=== PATIENT | female | born 1980 | race Caucasian/White ===

== ENCOUNTER → 2016-10-12 | Outpatient (CLI) | payer OTHER | LOC: FIMAGING 08:34 | PROVIDERS: ATTEND Obstetrics & Gynecology | DX: O09.512 Supervision of elderly primigravida, second trimester (principal); Z3A.19 19 weeks gestation of pregnancy ==

== ENCOUNTER 2017-03-01 05:35 | Inpatient (IN) | payer OTHER ==
[2017-03-01] MEDS ORDERED: CITRIC ACID/SODIUM CITRATE 30 ML UDCUP PO ONE (06:18)
[2017-03-01] MEDS ORDERED: LR 500 ML IV ONE (06:18)
[2017-03-01] MEDS ORDERED: ceFAZolin 2 GM/DEXTROSE 100 ML IV ONE (06:18)
[2017-03-01] MEDS ORDERED: OXYTOCIN 10 UNIT/ML VIAL ONE (06:26)
[2017-03-01] MEDS ORDERED: LIDOCAINE 1% 300 MG/30 ML SDV ONE (06:26)
[2017-03-01] MEDS ORDERED: OLIVE OIL 118 ML BTL ONE (06:26)
[2017-03-01] MEDS ORDERED: TERBUTALINE SULFATE 1 MG/ML VIAL ONE (06:26)
[2017-03-01] MEDS ORDERED: AMMONIA AROMATIC 1 EACH AMP IH ONE (06:26)
[2017-03-01] MEDS ORDERED: MISOPROSTOL 200 MCG TAB ONE (06:27)
[2017-03-01] MEDS ORDERED: LR 1,000 ML IV SCH (06:30)
[2017-03-01 06:34] LABS: % IMMATURE GRANULYOCYTES 1.5 % (0.0-1.1); ABSOLUTE IMMATURE GRANULOCYTES 0.18 10^3/uL (0.00-0.10); ADD DIFF? NO; ADD MORPH? NO; ADD SCAN? NO; ATYPICAL LYMPHOCYTE FLAG 20 (0-99); FRAGMENT RBC FLAG 0 (0-99); HEMATOCRIT 36.6 % (38.0-47.0); HEMOGLOBIN 12.9 g/dL (12.6-16.3); LEFT SHIFT FLG 10 (0-99); LIPEMIA HEMOLYSIS FLAG 90 (0-99); MEAN CELL HEMOGLOBIN 30.6 pg (27.9-34.1); MEAN CELL HEMOGLOBIN CONCENTR. 35.2 g/dL (32.4-36.7); MEAN CELL VOLUME 86.7 fL (81.5-99.8); MEAN PLATELET VOLUME 12.2 fL (8.7-11.7); PLATELET CLUMPS FLAG 0 (0-99); PLATELET COUNT 150 10^3/uL (150-400); RED BLOOD CELL COUNT 4.22 10^6/uL (4.18-5.33); RED CELL DISTRIBUTION WIDTH 12.7 % (11.5-15.2)
--- NOTE | 2017-03-01 07:18 | PREANESOB ---
Obstetric Pre-Anesthesia Info - General Info Proposed Procedure: C Section. : 1 Para: 0 WBD: 39 - Info Status: Full Term Monitors: External FHR Baseline (bpm): 140 FHR Pattern: Reassuring - Labor Status Section History: Primary Indications for Current Section: Breech Labor Epidural: No Anesthesia ROS: Prior general anesthesia. Allergies/Adverse Reactions: Allergy/AdvReac Type Severity Reaction Status Date / Time No Known Allergies Allergy Unverified 03/01/17 06:18 Home Medications: Medication Instructions Recorded Fish Oil 2 cap PO DAILY 03/01/17 MAGNESIUM 2 tab PO DAILY 03/01/17 1 tab PO DAILY 03/01/17 Probiotic 1 cap PO DAILY 03/01/17 VITAMIN D 3 tab PO DAILY 03/01/17 Visit Medications: Generic Name Dose Route Start Last Admin Trade Name Freq PRN Reason Stop Dose Admin Lactated Ringer's 1,000 mls @ 125 mls/hr 03/01/17 06:30 Lr IV 08/28/17 06:29 CONT MAKENZIE Discontinued Medications Generic Name Dose Route Start Last Admin Trade Name Freq PRN Reason Stop Dose Admin Ammonia (Aromatic Spirit) Confirm 03/01/17 06:26 Ammonia Aromatic Administered 03/01/17 06:27 Dose 1 each IH .STK-MED ONE Citric Acid/Sodium Citrate 30 ml 03/01/17 06:18 Bicitra PO 03/01/17 06:19 ONCALL ONE Ephedrine Sulfate Confirm 03/01/17 06:26 Ephedrine Sulfate Administered 03/01/17 06:27 Dose 50 mg .ROUTE .STK-MED ONE Cefazolin Sodium/Dextrose 100 mls @ 200 mls/hr 03/01/17 06:18 Ancef 2 Gm (Premix) IV 03/01/17 06:47 ONCALL ONE Protocol Lactated Ringer's 500 mls @ 0 mls/hr 03/01/17 06:18 Lr IV 03/01/17 06:19 ONCE ONE As Directed Lidocaine HCl Confirm 03/01/17 06:26 Lidocaine Hcl 1% Administered 03/01/17 06:27 Dose 300 mg .ROUTE .STK-MED ONE Misoprostol Confirm 03/01/17 06:27 Cytotec Administered 03/01/17 06:28 Dose 800 mcg .ROUTE .STK-MED ONE [place] Oil Confirm 03/01/17 06:26 Sweet Oil Administered 03/01/17 06:27 Dose 118 ml .ROUTE .STK-MED ONE Oxytocin Confirm 03/01/17 06:26 Pitocin Administered 03/01/17 06:27 Dose 40 unit .ROUTE .STK-MED ONE Terbutaline Sulfate Confirm 03/01/17 06:26 Brethine Administered 03/01/17 06:27 Dose 1 mg .ROUTE .STK-MED ONE - Anesthesia History Response to Local Anesthetics: Normal Anesthesia & Operative History: No Prior Problems Family Anesthesia History: Negative - Social History Substance Use/Abuse: Denies - Focused Exam Blood Pressure: 117/86 Heart Rate: 58 Respiratory Rate: 18 Height/Weight (Nursing): Height 167.64 cm Weight 76.204 kg Physical Exam: Within normal limits. ASA Status: II Labs: 03/01/17 06:17 - Plan Anesthetic Plan: SAB Consent Signed and on Chart: Yes Patient/Guardian Understands and Agrees to Plan: Yes
[2017-03-01] MEDS ORDERED: DEXAMETHASONE 4 MG/ML VIAL ONE ×2 (07:34)
[2017-03-01] MEDS ORDERED: ONDANSETRON 4 MG/2 ML VIAL ONE ×2 (07:34)
[2017-03-01] MEDS ORDERED: OXYTOCIN 100 UNITS/10 ML VIAL ONE (07:34)
[2017-03-01] MEDS ORDERED: PHENYLEPHRINE HCL 100 MCG/ML SYR ONE (07:34)
[2017-03-01] MEDS ORDERED: fentaNYL 100 MCG/2 ML INJ ONE (07:34)
[2017-03-01] MEDS ORDERED: morphINE PF 10 MG/10 ML INJ ONE (07:37)
[2017-03-01] MEDS ORDERED: CEFAZOLIN 2 GM/DEXTROSE/100 ML BAG IV ONE (07:51)
[2017-03-01] MEDS ORDERED: ACETAMINOPHEN 325 MG TAB PO PRN (07:54)
[2017-03-01] MEDS ORDERED: PROMETHAZINE HCL 25 MG/ML INJ IVP PRN (07:54)
[2017-03-01] MEDS ORDERED: IBUPROFEN 600 MG TAB PO PRN (07:54)
[2017-03-01] MEDS ORDERED: SIMETHICONE 80 MG TAB CHEW PO PRN (07:54)
--- NOTE | 2017-03-01 07:54 | OBDEL ---
Info Type: Primary GBS+: No Indications for Delivery: Elective (Breech presentation) Operative Report - Delivery Pre-op Diagnoses: 1) IUP at 39+3 weeks. 2) Breech presentation Post-op Diagnoses: norman Nulliparous Prior to Delivery: Yes Presentation at Delivery: Breech Procedure: Scheduled, Low Transverse Surgeon: Hetal Thomas Alarm Service Technician: Deirdre Everett Anesthesiologist: Efe Gonzalez L&D Analgesia/Anesthesia Type: Spinal Complications: None Findings: Baby in sveta breech presentation. IV Fluid (ml): 2,800 EBL: 700 cc Drains: Other (Specify) (marti) Data Martinez Delivery Date: 03/01/17 Delivery Time: 08:21 JUSTIN: 03/05/17 Gestational Age: 39 week(s) and 3 day(s) Sex of : Female Weight (gm): 3396 g Score (1 Min): 8 Score (5 Min): 9 ICD10 Worksheet Patient Problems: Problems Problem Status Onset Breech presentation delivered Acute delivery delivered Acute - ICD10 Problem Qualifiers (1) Breech presentation delivered (2) delivery delivered
[2017-03-01] MEDS ORDERED: OXYTOCIN/RINGERS LACTATE 1,000 ML IV SCH (08:00)
[2017-03-01] MEDS ORDERED: ONDANSETRON 4 MG/2 ML VIAL IVP PRN (09:12)
[2017-03-01] MEDS ORDERED: PHENYLEPHRINE HCL 100 MCG/ML SYR IVP PRN (09:12)
[2017-03-01] MEDS ORDERED: NALOXONE HCL 0.4 MG/ML INJ IVP PRN (09:12)
--- NOTE | 2017-03-01 09:12 | POSTANESTH ---
Post Anesthetic Evaluation Cardiovascular Status: Normal, Stable Respiratory Status: Normal, Stable, Similar to Pre-op Cond. Level of Consciousness/Mental Status: Can Participate in Eval, Alert and Oriented Pain Control: Adequate, Prn Tx Ordered Nausea/Vomiting Control: Adequate, Prn Tx Ordered Complications Possibly Related to Anesthesia: None Noted
[2017-03-01] MEDS: KETOROLAC 30 MG/1 ML SDV IVP PRN ×2 (12:11→18:16)
[2017-03-01 19:49] LABS: % IMMATURE GRANULYOCYTES 0.9 % (0.0-1.1); ABSOLUTE IMMATURE GRANULOCYTES 0.18 10^3/uL (0.00-0.10); ADD DIFF? NO; ADD MORPH? NO; ADD SCAN? NO; ATYPICAL LYMPHOCYTE FLAG 0 (0-99); FRAGMENT RBC FLAG 0 (0-99); HEMATOCRIT 35.7 % (38.0-47.0); HEMOGLOBIN 12.8 g/dL (12.6-16.3); LEFT SHIFT FLG 10 (0-99); LIPEMIA HEMOLYSIS FLAG 90 (0-99); MEAN CELL HEMOGLOBIN 30.5 pg (27.9-34.1); MEAN CELL HEMOGLOBIN CONCENTR. 35.9 g/dL (32.4-36.7); MEAN CELL VOLUME 85.2 fL (81.5-99.8); MEAN PLATELET VOLUME 11.6 fL (8.7-11.7); PLATELET CLUMPS FLAG 0 (0-99); PLATELET COUNT 154 10^3/uL (150-400); RED BLOOD CELL COUNT 4.19 10^6/uL (4.18-5.33); RED CELL DISTRIBUTION WIDTH 12.3 % (11.5-15.2)
[2017-03-01 20:12] LABS: ALANINE AMINOTRANSFERASE 26 IU/L (9-52); ALBUMIN 2.6 g/dL (3.5-5.0); ALKALINE PHOSPHATASE 140 IU/L (38-126); ANION GAP 6 mEq/L (8-16); ASPARTATE AMINOTRANSFERASE 32 IU/L (14-46); BILIRUBIN,TOTAL 0.6 mg/dL (0.1-1.4); CALCIUM 8.3 mg/dL (8.5-10.4); CARBON DIOXIDE 17 mEq/l (22-31); CHLORIDE 104 mEq/L (97-110); GLOMERULAR FILTRATION RATE > 60; GLUCOSE 96 mg/dL (70-100); POTASSIUM 5.9 mEq/L (3.5-5.2); SODIUM 127 mEq/L (134-144); TOTAL PROTEIN 4.6 g/dL (6.3-8.2)
--- NOTE | 2017-03-01 21:23 | SOAPPROG ---
SOAP Progress Note Assessment/Plan: Assessment: POD#1 s/p uncomplicated primary C/S Notified by RN of borderline low UOP: 25-30 ml/hr. s/p 5 liters IVF + 500 ml bolus Per RN pt is ambulating, tolerating regular diet, minimal pain Labs show appropriate Hgb, slightly elevated creatinine, elevated K to 5.9 Plan: Expect borderline renal dysfunction from toradol causing hyperkalemia. No e/o bleeding. Appropriate resuscitation. Pt is tolerating po Hold any further toradol Repeat BMP at midnight--will treat potassium if remains elevated 03/01/17 21:20 Objective: Vital Signs Temp Pulse Resp BP Pulse Ox 36.5 C 60 16 107/66 95 03/01/17 20:00 03/01/17 20:00 03/01/17 20:00 03/01/17 20:00 03/01/17 20:00 Laboratory Results 03/01/17 18:40 03/01/17 18:40 02/28/17 03/01/17 03/02/17 05:59 05:59 05:59 Intake Total 4000 Output Total 950 Balance 3050 ICD10 Worksheet Patient Problems: Problems Problem Status Onset Breech presentation delivered Acute delivery delivered Acute
[2017-03-02 02:22] LABS: ANION GAP 5 mEq/L (8-16); CALCIUM 8.2 mg/dL (8.5-10.4); CARBON DIOXIDE 21 mEq/l (22-31); CHLORIDE 104 mEq/L (97-110); CREATININE 1.2 mg/dL (0.6-1.0); GLOMERULAR FILTRATION RATE 51; GLUCOSE 78 mg/dL (70-100); POTASSIUM 6.1 mEq/L (3.5-5.2); SODIUM 130 mEq/L (134-144)
--- NOTE | 2017-03-02 02:57 | SOAPPROG ---
SOAP Progress Note Assessment/Plan: Assessment: POD#2 s/p uncomplicated primary C/S UOP normalized Repeat BMP demonstrates ongoing hyperkalemia and also elevated Cr Plan: Hold NSAIDS Hospitalist consult for recommendations for treatment of hyperkalemia STAT EKG ordered Plan repeat CBC at 0600, no concern at this time for intraabdominal bleeding Objective: Vital Signs Temp Pulse Resp BP Pulse Ox 36.6 C 61 18 105/69 94 03/02/17 00:15 03/02/17 00:15 03/02/17 00:15 03/02/17 00:15 03/02/17 00:15 Laboratory Results 03/01/17 18:40 03/02/17 00:30 02/28/17 03/01/17 03/02/17 05:59 05:59 05:59 Intake Total 4000 Output Total 1260 Balance 2740 ICD10 Worksheet Patient Problems: Problems Problem Status Onset Breech presentation delivered Acute delivery delivered Acute
--- NOTE | 2017-03-02 03:08 | CPEKG ---
Heart Rate: 61 RR Interval: 984 P-R Interval: 160 QRSD Interval: 70 QT Interval: 372 QTC Interval: 375 P [place]: 57 QRS [place]: 38 T Wave [place]: 23 EKG Severity - BORDERLINE ECG - EKG Impression: SINUS RHYTHM EKG Impression: LOW VOLTAGE THROUGHOUT EKG Impression: Probable left atrial abnormality Electronically Signed By: Neymar Ybarra 02-Mar-2017 10:45:01
[2017-03-02] MEDS: HYDROCODONE/APAP 5/325 TAB PO PRN ×5 (03:48→21:35)
[2017-03-02 06:25] LABS: % IMMATURE GRANULYOCYTES 0.9 % (0.0-1.1); ABSOLUTE IMMATURE GRANULOCYTES 0.14 10^3/uL (0.00-0.10); ADD DIFF? NO; ADD MORPH? NO; ADD SCAN? NO; ATYPICAL LYMPHOCYTE FLAG 10 (0-99); FRAGMENT RBC FLAG 10 (0-99); HEMATOCRIT 35.4 % (38.0-47.0); HEMOGLOBIN 12.3 g/dL (12.6-16.3); LEFT SHIFT FLG 10 (0-99); LIPEMIA HEMOLYSIS FLAG 90 (0-99); MEAN CELL HEMOGLOBIN 30.1 pg (27.9-34.1); MEAN CELL HEMOGLOBIN CONCENTR. 34.7 g/dL (32.4-36.7); MEAN CELL VOLUME 86.8 fL (81.5-99.8); MEAN PLATELET VOLUME 11.9 fL (8.7-11.7); PLATELET CLUMPS FLAG 10 (0-99); PLATELET COUNT 151 10^3/uL (150-400); RED BLOOD CELL COUNT 4.08 10^6/uL (4.18-5.33); RED CELL DISTRIBUTION WIDTH 12.5 % (11.5-15.2)
--- NOTE | 2017-03-02 08:50 | OBPP ---
Progress Note Assessment/Plan: Assessment: 36 y.o. female s/p primary C/S for breech. Recovering well with good pain control. Overnight decreased urine output with elevated creatinine. This morning ambulating and voiding plenty of urine. Repeat labs still pending. Plan: Routine / post-op orders. D/C marti, IV BC, abdominal bandage, plexi- pulse stockings. Encourage ambulation. F/U with lab work. 03/02/17 08:46 Subjective: Reports feeling well with good pain control and minimal vaginal bleeding. well. Ambulating well without vertigo. Eating and drinking well without n/v. Incision CDI. Healing well. Appropriate mood with good pain control. Objective: 03/02/17 06:15 Patient ABO/Rh B POSITIVE 03/01/17 06:17 Total Bilirubin 0.6 mg/dL (0.1-1.4) 03/01/17 18:40 AST 32 IU/L (14-46) 03/01/17 18:40 ALT 26 IU/L (9-52) 03/01/17 18:40 Temp Pulse Resp BP Pulse Ox 36.4 C 65 17 102/54 L 94 03/02/17 08:00 03/02/17 08:00 03/02/17 08:00 03/02/17 08:00 03/02/17 08:00 Uterine Position/Fundal Height: Umbilicus -1 Uterine Tone: Firm Physical Exam - Physical Exam General Appearance: WD/WN, alert, no apparent distress EENT: normal ENT inspection Neck: non-tender, supple, normal inspection Respiratory: lungs clear, normal breath sounds Cardiac/Chest: regular rate, rhythm Abdomen: normal bowel sounds, non-tender, soft Extremities: non-tender, normal inspection Back: Normal inspection Skin: normal color, warm/dry Neuro/Psych: alert, normal mood/affect, oriented x 3
[2017-03-02] MEDS: DOCUSATE SODIUM 100 MG CAP PO PRN ×2 (09:00→21:35)
--- NOTE | 2017-03-02 09:39 | HOSPPROG ---
Hospitalist Progress Note Assessment/Plan: #Hyperkalemia: in setting of NAOMI. No peaked TWs on EKG. Repeat BMP. #NAOMI: improved with IVFs. Avoid NSAIDs We will sign off. Please call if can help. Subjective: no acute events Objective: Vital Signs Temp Pulse Resp BP Pulse Ox 36.4 C 65 17 102/54 L 94 03/02/17 08:00 03/02/17 08:00 03/02/17 08:00 03/02/17 08:00 03/02/17 08:00 Laboratory Results 03/02/17 06:15 03/01/17 03/02/17 03/03/17 05:59 05:59 05:59 Intake Total 5700 Output Total 2435 300 Balance 3265 -300 - Physical Exam Constitutional: no apparent distress Eyes: PERRL Ears, Nose, Mouth, Throat: moist mucous membranes Cardiovascular: regular rate and rhythym Respiratory: no respiratory distress Gastrointestinal: normoactive bowel sounds, soft, non-tender abdomen Neurologic: AAOx3, CN II-XII Intact Psychiatric: interacting appropriately ICD10 Worksheet Patient Problems: Problems Problem Status Onset Breech presentation delivered Acute delivery delivered Acute
[2017-03-02 10:07] LABS: ANION GAP 4 mEq/L (8-16); CALCIUM 8.6 mg/dL (8.5-10.4); CARBON DIOXIDE 21 mEq/l (22-31); CHLORIDE 107 mEq/L (97-110); CREATININE 1.1 mg/dL (0.6-1.0); GLOMERULAR FILTRATION RATE 56; GLUCOSE 91 mg/dL (70-100); POTASSIUM 4.3 mEq/L (3.5-5.2); SODIUM 132 mEq/L (134-144)
[2017-03-02] MEDS: IBUPROFEN 600 MG TAB PO SCH ×2 (11:56→18:52)
--- NOTE | 2017-03-02 13:04 | GCON ---
[f rep st] CONSULTATION HOSPITALIST CONSULTATION DATE OF CONSULTATION: 03/02/2017 REFERRING PHYSICIAN: Deirdre Everett MD REASON FOR CONSULTATION: Hyperkalemia. This is a 36-year-old primiparous female who delivered by due to breech presentation at 39 weeks and 3 days on 03/01/2017. I have been asked to consult on due to hyperkalemia. HISTORY OF PRESENT ILLNESS: The patient has been getting NSAIDs. She is on no other medications th at cause hyperkalemia. She has not been taking potassium. Per report, throughout the day, the yoli ent has had very poor urine output. She subsequently received 4 L of fluids. At the time of my exam, she denies any shortness of breath. She tells me that her legs have been qu ite swollen. A Gomes catheter is in place and her urine production is now improving. PAST MEDICAL HISTORY: Denies. PAST SURGICAL HISTORY: Ankle surgery and recent . MEDICATIONS: At home, none. ALLERGIES: No known drug allergies. SOCIAL HISTORY: Denies any alcohol, tobacco, or illicit drug use. FAMILY HISTORY: Reviewed and noncontributory. REVIEW OF SYSTEMS: A comprehensive 10-point review of systems was done and is negative, except for as mentioned in the HPI. PHYSICAL EXAMINATION: VITAL SIGNS: Blood pressure 105/69, pulse 61, respiratory rate 18, O2 satura tion 94% on room air, temperature afebrile. GENERAL: In no acute distress. HEART: S1 and S2. ABE NGS: Clear. No wheezes, rales, or rhonchi. ABDOMEN: Soft. EXTREMITIES: No clubbing or cyanosis . NEURO: Cranial nerves 2-12 grossly intact. No focal motor or sensory deficits. SKIN: Clear. No rashes. LABORATORY DATA: WBC is 20, hemoglobin 12.8, hematocrit 35.7, platelets 154. Sodium 130, potassium 6.1, chloride 104, BUN 17, creatinine 1.2, glucose 78. IMAGING: EKG, which I ordered emergently, reviewed and interpreted, is negative for peaked T-waves or widening of the QRS. ASSESSMENT: This is a 36-year-old, female status post section 2 days ago, with improving a cute kidney injury with hyperkalemia that is mild and asymptomatic. PLAN: Now that the patient is making good urine, I suspect her potassium will correct with continue d hydration. She has been getting lactated Ringer's which should not be contributing to her hyperka lemia and should be continued. A repeat metabolic panel has been ordered to be done in 3 hours to jordana quintero monitor her potassium. If her potassium continues to be elevated, I would consider treating with Lasix or Kayexalate. Thank you for allowing me to participate in the care of this patient. The hospitalist service will continue to follow along with you. /[id number]/MODL
[2017-03-03] MEDS: IBUPROFEN 600 MG TAB PO SCH ×2 (01:27→17:17)
[2017-03-03 06:24] LABS: % IMMATURE GRANULYOCYTES 0.9 % (0.0-1.1); ABSOLUTE IMMATURE GRANULOCYTES 0.09 10^3/uL (0.00-0.10); ADD DIFF? NO; ADD MORPH? NO; ADD SCAN? NO; ATYPICAL LYMPHOCYTE FLAG 10 (0-99); FRAGMENT RBC FLAG 0 (0-99); HEMATOCRIT 35.6 % (38.0-47.0); HEMOGLOBIN 12.1 g/dL (12.6-16.3); LEFT SHIFT FLG 0 (0-99); LIPEMIA HEMOLYSIS FLAG 90 (0-99); MEAN CELL HEMOGLOBIN 29.9 pg (27.9-34.1); MEAN CELL VOLUME 87.9 fL (81.5-99.8); MEAN PLATELET VOLUME 11.6 fL (8.7-11.7); PLATELET CLUMPS FLAG 0 (0-99); PLATELET COUNT 166 10^3/uL (150-400); RED BLOOD CELL COUNT 4.05 10^6/uL (4.18-5.33); RED CELL DISTRIBUTION WIDTH 12.8 % (11.5-15.2)
[2017-03-03 06:45] LABS: ALANINE AMINOTRANSFERASE 30 IU/L (9-52); ALBUMIN 2.6 g/dL (3.5-5.0); ALKALINE PHOSPHATASE 127 IU/L (38-126); ANION GAP 7 mEq/L (8-16); ASPARTATE AMINOTRANSFERASE 34 IU/L (14-46); BILIRUBIN,TOTAL 0.4 mg/dL (0.1-1.4); CALCIUM 8.6 mg/dL (8.5-10.4); CARBON DIOXIDE 22 mEq/l (22-31); CHLORIDE 113 mEq/L (97-110); CREATININE 0.9 mg/dL (0.6-1.0); GLOMERULAR FILTRATION RATE > 60; GLUCOSE 60 mg/dL (70-100); POTASSIUM 4.4 mEq/L (3.5-5.2); SODIUM 142 mEq/L (134-144); TOTAL PROTEIN 4.7 g/dL (6.3-8.2)
--- NOTE | 2017-03-03 08:13 | OBPP ---
Progress Note Assessment/Plan: Assessment: 36 y.o. female s/p primary C/S for breech. Recovering well with good pain control. Experienced a decrease in urine output the first night and experienced an increase in creatinine and potassium levels. Yesterday and today feeling much better with adequate urine output. Plan: Routine / post-op orders. Encourage ambulation. [employer] manufacturing consultant 03/02/17 08:46 03/03/17 08:10 Subjective: Reports feeling well with good pain control with light vaginal bleeding. Incision CDI and healing well. Ambulating well without vertigo. Eating and drinking well without nausea or vomiting. Appropriate mood with good support system. Objective: 03/03/17 06:05 03/03/17 06:05 Patient ABO/Rh B POSITIVE 03/01/17 06:17 Total Bilirubin 0.4 mg/dL (0.1-1.4) 03/03/17 06:05 AST 34 IU/L (14-46) 03/03/17 06:05 ALT 30 IU/L (9-52) 03/03/17 06:05 Temp Pulse Resp BP Pulse Ox 36.2 C 62 16 114/80 100 03/02/17 20:00 03/02/17 20:00 03/02/17 20:00 03/02/17 20:00 03/02/17 20:00 Uterine Position/Fundal Height: Umbilicus -1 Uterine Tone: Firm Physical Exam - Physical Exam General Appearance: WD/WN, alert, no apparent distress EENT: normal ENT inspection Neck: non-tender, full range of motion, normal inspection Respiratory: lungs clear, normal breath sounds Cardiac/Chest: regular rate, rhythm Abdomen: normal bowel sounds, non-tender, soft Extremities: normal range of motion, non-tender, normal inspection Back: Normal inspection Skin: normal color, warm/dry Neuro/Psych: alert, normal mood/affect, oriented x 3
[2017-03-03] MEDS: HYDROCODONE/APAP 5/325 TAB PO PRN (08:41)
[2017-03-03] MEDS: DOCUSATE SODIUM 100 MG CAP PO PRN (08:41)
[2017-03-03 19:58] VITALS: O2SAT 98
[2017-03-04] MEDS: HYDROCODONE/APAP 5/325 TAB PO PRN (03:25)
--- NOTE | 2017-03-04 08:34 | OBPP ---
Progress Note Assessment/Plan: Assessment: 36 y/o female POD#3 s/p primary LTCS for breech presentation - Plan: 1) Routine PP care, discharge home today. Renal status improved. 2) RX for norco given, no NSAIDS x 2 weeks 3) F/U in 2 and 6 weeks or sooner prn 03/04/17 08:34 Subjective: Pt ambulating, tolerating regular diet, voiding spontaneously. Pain well controlled. Objective: 03/03/17 06:05 03/03/17 06:05 Patient ABO/Rh B POSITIVE 03/01/17 06:17 Total Bilirubin 0.4 mg/dL (0.1-1.4) 03/03/17 06:05 AST 34 IU/L (14-46) 03/03/17 06:05 ALT 30 IU/L (9-52) 03/03/17 06:05 Temp Pulse Resp BP Pulse Ox 36.2 C 60 16 127/84 H 98 03/03/17 19:50 03/03/17 19:50 03/03/17 19:50 03/03/17 19:50 03/03/17 19:50 Uterine Position/Fundal Height: Umbilicus -1 Uterine Tone: Firm Physical Exam - Physical Exam General Appearance: WD/WN, alert, no apparent distress Respiratory: lungs clear Cardiac/Chest: regular rate, rhythm Abdomen: normal bowel sounds, incision (c/d/i)
[2017-03-04 09:08] VITALS: BP 122/83; PULSE 61; RESP 17; TEMP 98
[2017-03-04] MEDS: DOCUSATE SODIUM 100 MG CAP PO PRN (09:38)
== END 2017-03-04 12:20 | disposition home or self-care (01) | DRG 765 ==
LOC: FLD 05:35 → FOB 11:52
PROVIDERS: ADMIT Obstetrics & Gynecology; ATTEND Obstetrics & Gynecology
PROC: 10D00Z1 Extraction of Products of Conception, Low, Open Approach (ICD-10-PCS; principal; 2017-03-01)
DX: O32.1XX0 Maternal care for breech presentation, not applicable or unspecified (principal); O90.4 Postpartum acute kidney failure; Z37.0 Single live birth; Z3A.39 39 weeks gestation of pregnancy; O99.284 Endocrine, nutritional and metabolic diseases complicating childbirth; E87.5 Hyperkalemia
CPT/HCPCS: J0690; J1100; J1885; J2274; J2370; J2405; J2550; J2590; J3010; J3105